=== PATIENT | female | born 1975 | race Caucasian/White ===

== ENCOUNTER 2023-05-29 11:31 | Day surgery (SDC) | payer OTHER ==
[~2023-05-29] VITALS: Ht 157.5 cm; Wt 86.6 kg
[2023-05-29] MEDS ORDERED: fentaNYL citrate 0.05 MG/ML VIAL ONE (13:16)
[2023-05-29] MEDS ORDERED: LIDOCAINE 2% 100 MG/5 ML UJET TP ONE (13:16)
[2023-05-29] MEDS ORDERED: fentaNYL citrate 0.05 MG/ML VIAL IVP ONE (14:25)
== END 2023-05-29 14:30 | disposition home or self-care (01) ==
LOC: MDS 11:31 → MMU 11:32 → MDS 14:30
PROVIDERS: ATTEND Internal Medicine Gastroenterology
DX: Z12.11 Encounter for screening for malignant neoplasm of colon (principal); K75.81 Nonalcoholic steatohepatitis (NASH); E03.9 Hypothyroidism, unspecified; Z79.899 Other long term (current) drug therapy
CPT/HCPCS: 45378; J3010

== ENCOUNTER 2023-08-29 15:47 | Emergency (ER) | payer OTHER ==
[~2023-08-29] VITALS: Ht 157.5 cm; Wt 83.7 kg
[2023-08-29 15:50] VITALS: BP 140/85; PULSE 103; RESP 18; TEMP 98; O2SAT 97
[2023-08-29] MEDS: NACL 0.9% 1,000 ML IV ONE (16:19)
[2023-08-29 16:25] LABS: BASOPHILS % (AUTO) 0.5 % (0.0-2.0); EOSINOPHILS # (AUTO) 0.1 K/uL (0-0.4); EOSINOPHILS % (AUTO) 0.7 % (0.0-4.0); HEMATOCRIT 40.1 % (36-48); HEMOGLOBIN 13.3 g/dL (12.0-16.0); LYMPHOCYTES # (AUTO) 2.7 K/uL (2.5-16.5); MEAN CORPUSCULAR HEMOGLOBIN 25 pg (27-31); MEAN CORPUSCULAR HGB CONC 33 g/dL (33-37); MEAN CORPUSCULAR VOLUME 76.5 fL (80-94); MONOCYTES # (AUTO) 0.6 K/uL (0.8-1.0); MONOCYTES % (AUTO) 6.7 % (1.7-9.3); NEUTROPHILS # (AUTO) 5.6 K/uL (1.8-7.7); NEUTROPHILS % (AUTO) 62.1 % (42.2-75.2); PLATELET COUNT (AUTO) 194 K/uL (140-450); RED BLOOD CELL COUNT(AUTO) 5.24 MIL/uL (4.20-5.40); RED CELL DISTRIBUTION WIDTH 17.5 % (11.6-13.7)
[2023-08-29] MEDS: PROCHLORPERAZINE 10 MG/2 ML VIAL IVP ONE (16:26)
[2023-08-29] MEDS: diphenhydrAMINE 50 MG/ML VIAL IVP ONE (16:26)
[2023-08-29] MEDS: KETOROLAC 30 MG/ML VIAL IVP ONE (16:27)
[2023-08-29 18:42] LABS: BILIRUBIN,DIRECT 0.1 mg/dL (0.0-0.3); TOTAL BILIRUBIN 0.7 mg/dL (0.0-1.0)
[2023-08-29 18:43] LABS: ALANINE AMINOTRANSFERASE 19 U/L (12-78); ALBUMIN 3.9 g/dL (3.4-5.0); ALKALINE PHOSPHATASE 90 U/L (50-136); ASPARTATE AMINOTRANSFERASE 14 U/L (15-37); THYROID STIMULATING HORMONE 0.27 uIU/mL (0.34-3.74); TOTAL PROTEIN, SERUM 7.3 g/dL (6.4-8.2)
[2023-08-29 19:17] LABS: ANION GAP 16.2 (8-16); CALCIUM 8.4 mg/dL (8.5-10.1); CARBON DIOXIDE 25.5 mmol/L (21-32); CREATININE 0.9 mg/dL (0.6-1.3); POTASSIUM 3.7 mmol/L (3.5-5.1)
[2023-08-29] MEDS ORDERED: METO-486 PO (20:34)
[2023-08-29 20:41] VITALS: BP 140/85; PULSE 103; RESP 18; TEMP 98; O2SAT 97
== END 2023-08-29 20:41 | disposition home or self-care (01) ==
LOC: MED 15:47
DX: R51.9 Headache, unspecified (principal); R42 Dizziness and giddiness; R07.9 Chest pain, unspecified; Z79.899 Other long term (current) drug therapy
CPT/HCPCS: 36415; 70450; 71045; 80048; 80076; 84443; 84484; 85025; 93005; 96361; 96374; 96375; 99285; J0780; J1200; J1885; Q0092; J7030